=== PATIENT | male | born 2000 | race Two or more races ===

== ENCOUNTER 2023-12-29 10:58 | Emergency (ER) | payer BC, SELFPAY ==
[2023-12-29 11:02] VITALS: BP 140/85; PULSE 57; RESP 16; TEMP 36.8; O2SAT 100; BMI 24.7
--- NOTE | 2023-12-29 11:31 | ED_ITS ---
HPI - Male Genitourinary General Chief complaint: Urogenital-Male Stated complaint: l flank pain- std testing Time Seen by Provider: 12/29/23 11:16 Source: patient Mode of arrival: ambulatory Limitations: no limitations History of Present Illness ED Provider: POLINA TRAVIS PA-C HPI Narrative: 23 year old male with no significant pmhx presents to the ED today for evaluation of LLQ abdominal pain along with urinary urgency and frequency x2 days. Admits pain is localized to LLQ and does not radiate. Reports constipation during the day and episodes of loose stools in the morning. Has not yet been medically evaluated for this. Denies fever, chills, sore throat, cough, sputum production, sob, chest pain, flank pain, hematuria, penile discharge or lesions. Upon entering the room, patient already requesting excusal note from work tomorrow. Related Data Allergies Allergy/AdvReac Type Severity Reaction Status Date / Time No Known Allergies Allergy Verified 12/29/23 11:04 Review of Systems 2 Review of Systems: Constitutional: No fever, chills, fatigue, night sweats, weight changes ENT/Mouth: No ear pain, hearing loss, nasal congestion, sinus pain, rhinorrhea, sore throat Eyes: No eye pain, swelling, redness, vision changes, discharge Cardio: No chest pain, palpitations, PICKARD, orthopnea, peripheral edema Pulm: No SOB, cough, sputum, wheezing, dyspnea, hemoptysis GI: No nausea, vomiting, hematemesis, diarrhea, constipation, hematochezia, melena, +abd pain : No irregular bleeding, dysuria, frequency, urgency, hesitancy, hematuria, flank pain, urinary flow changes, urinary incontinence or retention, +dysuria MSK: No back pain, neck pain, joint pain, myalgias Skin: No lesions, rashes Neuro: No weakness, numbness, paresthesias, LOC, dizziness, headache Psych: No anxiety/panic, depression, SI/HI, AH/VH All other systems reviewed and are negative. [facility] Past Medical History Attestation statement: The following information was validated with the patient. Source: old records reviewed and nursing notes reviewed Social History Social History Advance Directives: No Advance Directives Information Provided: Yes Physical Exam 2 Vital Signs: Vital Signs: Last Vital Signs Temp 98.2 F 12/29/23 11:02 Pulse 57 12/29/23 11:02 Resp 16 12/29/23 11:02 BP 140/85 H 12/29/23 11:02 Pulse Ox 100 12/29/23 11:02 O2 Del Method Room Air 12/29/23 11:02 BMI result Body Mass Index 24.7 Patient hypertensive to 140/85, vitals otherwise WNL. Afebrile. General: Well appearing, in no acute distress. Skin: Warm, dry, intact. No rashes or lesions. Head: Normocephalic, atraumatic. EENT: Hearing is intact b/l. Conjunctiva clear. Sclera is anicteric. PERRLA. EOM intact. Moist mucous membranes.? Neck: Supple without LAD. FROM. Trachea midline.? Cardiac: Chest wall symmetric. RRR. No MRG. No JVD. Lungs: Normal respiratory effort without accessory muscle use. CTA bilaterally. No rales, rhonchi, or wheezes.? Abdomen: Soft, non-tender, non-distended. No rebound tenderness or guarding. Positive BS x4. Back: No midline spinous or paraspinal tenderness. No step off deformity. Ext: Upper and lower extremities atraumatic, without tenderness, deformity, swelling or erythema. Full ROM throughout. Neuro: AOx3. Normal speech. Strength 5/5 intact throughout. Sensation intact to light touch. NV intact distally. Reflexes 2+ bilaterally. Ambulating with steady gait. Psych: Appropriate mood and affect. Responds appropriately to questions. Course Course Course Narrative: 1217 -- CBC without leukocytosis or left shift. No anemia. H&H stable. Chemistry without acute electrolyte abnormality requiring intervention. No ETIENNE. Normal liver function. Lipase WNL. Urine without infection or blood. Denies STI testing. Given benign physical exam and unremarkable labs, I do not feel as though imaging of his abdomen is warranted at this time. Will provide patient with GI referral. I offered to medicate patient with Toradol given abdominal pain however he is declining at this time. Patient has remained stable throughout ED visit today. Discussed worrisome signs and symptoms and when to return to the ED. All questions answered at this time. Patient is agreeable with disposition and stable for discharge. Medications Administered Discontinued Medications Generic Name Dose Route Start Last Admin Trade Name Danyel PRN Reason Stop Dose Admin Ketorolac Tromethamine 30 mg 12/29/23 11:56 12/29/23 12:06 Ketorolac Tromethamine 30 Mg/Ml Vial IM 12/29/23 11:57 Not Given ONCE ONE Medical Decision Making Medical Decision Making [facility] Narrative: 23 year old male with no significant pmhx presents to the ED today for evaluation of LLQ abdominal pain along with urinary urgency and frequency x2 days. Hypertensive to 140/85, vitals otherwise wnl. He is nontoxic appearing and in NAD. Lying comfortably on the exam bed. Skin is warm, dry, intact. There is no CVAT bilaterally. Abdomen is soft, nondistended, nontender to palpation. No rebound tenderness or guarding. Normoactive bowel sounds x4. Bladder not palpable. Differential diagnosis includes anemia, electrolyte abnormality, UTI, ETIENNE, gastroenteritis, renal colic, nephrolithiasis. Patient declines STI testing at this time. Lower suspicion for diverticulosis/ diverticulitis, atypical appendicits. Presentation not consistent with SBO, ischemic bowel. Plan for blood work, UA, and re-evaluation. Differential Diagnosis Differential Diagnoses: The differential diagnosis associated with the presentation includes As above Admission/Observation Not indicated Lab Data [facility] Lab Attestation statement: I reviewed the patient's lab results. As above 12/29/23 11:29 12/29/23 11:29 Labs: Lab Results 12/29/23 12/29/23 Range/Units 11:29 11:35 WBC 7.8 (4.8-10.8) X10*3/uL RBC 4.84 (4.60-5.80) X10*6/uL Hgb 14.3 (14.0-18.0) g/dl Hct 42.3 (42.0-52.0) % MCV 87.4 (80.0-98.0) fL MCH 29.5 (27.0-33.0) pg MCHC 33.8 (31.0-36.0) g/dl RDW 12.6 (11.0-16.0) % Plt Count 265 (160-400) X10*3/uL MPV 8.4 L (9.4-12.4) fL Immature Gran % (Auto) 0.3 (0.0-0.4) % Neut % (Auto) 53.4 (45-73) % Lymph % (Auto) 34.6 (20-40) % [place] % (Auto) 6.0 (2-11) % Eos % (Auto) 5.1 H (0-4) % Baso % (Auto) 0.6 (0-2) % Lymph # (Auto) 2.7 (1.2-4.9) X10*3/uL [place] # (Auto) 0.5 (0.1-1.2) X10*3/uL Eos # (Auto) 0.4 (0.0-0.4) X10*3/uL Baso # (Auto) 0.1 (0.0-0.2) X10*3/uL Abs Immat Gran (auto) 0.02 (0.00-0.03) X10*3/uL Absolute Neuts (auto) 4.2 (2.0-8.3) x10*3/uL Absolute Nucleated RBC 0.000 (0.0-0.012) X10*3/uL Nucleated RBC % (auto) 0.0 (0.0-0.2) /100WBC Sodium 141 (135-145) mmol/L Potassium 4.0 (3.3-5.1) mmol/L Chloride 108 (96-108) mmol/L Carbon Dioxide 26 (22-29) mmol/L Anion Gap 11 L (12-20) BUN 12 (9-16) mg/dL Creatinine 0.71 (0.5-1.4) mg/dL Estim Creat Clear Calc 148.6 Estimated GFR > 60 Random Glucose 94 (60-115) mg/dL Calcium 9.4 (8.4-10.2) mg/dL Total Bilirubin 0.8 (0.0-1.0) mg/dL Direct Bilirubin 0.2 (0.0-0.5) mg/dL AST 19 (5-37) U/L ALT 19 (0-40) U/L Alkaline Phosphatase 54 (39-117) U/L Total Protein 6.5 (6.5-8.0) g/dL Albumin 4.3 (3.5-5.0) g/dL Lipase 28 (8-78) U/L Urine Color Yellow Urine Appearance Turbid Urine pH >= 9.0 (5.0-9.0) Ur Specific [place] 1.025 (1.005-1.025) Urine Protein Trace (Neg-Trace) mg/dL Urine Glucose (UA) Negative (Negative) mg/dL Urine Ketones Negative (Negative) mg/dL Urine Blood Negative (Negative) Urine Nitrite Negative (Negative) Ur Leukocyte Esterase Negative (Negative) Critical Care Time Critical Care Time Critical Care Time: No Discharge Plan Discharge Clinical Impression: Abdominal pain Patient Disposition: Home, Self-Care Instructions: Abdominal Pain (ED) Additional Instructions: Your blood work today is reassuring. Your urine is negative for infection or blood. Etiology of your abdominal pain is unclear. I recommend you take 600mg ibuprofen every 6 hours or Tylenol 650mg every 6 hours as needed for pain. If needed, you can alternate these medications so that you take one medication every 3 hours. For example, at noon take ibuprofen, then at 3pm take Tylenol, then at 6pm take ibuprofen. You have been provided with a referral to a gastrointestinal doctor. You may call them to establish care. They will not call you. Return with new or worsening symptoms. In the case of an emergency call 911. Referrals: [facility] [Provider Group] [facility] [Provider Group] [facility] [Provider Group] Stand Alone Forms: Work/School Release Discharge Date/Time: 12/29/23 12:23 Print Language: Telugu
[2023-12-29 11:35] LABS: Basophils Absolute Auto 0.1 X10*3/uL (0.0-0.2); Basophils Percent Auto 0.6 % (0-2); Eosinophils Absolute Auto 0.4 X10*3/uL (0.0-0.4); Eosinophils Percent Auto 5.1 % (0-4); Hematocrit 42.3 % (42.0-52.0); Hemoglobin 14.3 g/dl (14.0-18.0); Imm Gran Abs Auto 0.02 X10*3/uL (0.00-0.03); Imm Gran Pct Auto 0.3 % (0.0-0.4); Lymphocytes Absolute Auto 2.7 X10*3/uL (1.2-4.9); Lymphocytes Percent Auto 34.6 % (20-40); MANUAL DIFF FLAG NO; Mean Corpuscular HGB Conc 33.8 g/dl (31.0-36.0); Mean Corpuscular Hemoglobin 29.5 pg (27.0-33.0); Mean Corpuscular Volume 87.4 fL (80.0-98.0); Mean Platelet Volume 8.4 fL (9.4-12.4); Monocytes Absolute Auto 0.5 X10*3/uL (0.1-1.2); Neutrophils Absolute Auto 4.2 x10*3/uL (2.0-8.3); Neutrophils Percent Auto 53.4 % (45-73); Platelet Count 265 X10*3/uL (160-400); Red Blood Count 4.84 X10*6/uL (4.60-5.80); Red Cell Distribution Width 12.6 % (11.0-16.0); White Blood Count 7.8 X10*3/uL (4.8-10.8)
[2023-12-29 11:43] LABS: Appearance Urine Turbid; Color Urine Yellow; Glucose Urine UA Negative (Negative); Leukocyte Esterase Urine Negative (Negative); Nitrite Urine Negative (Negative); PH >= 9.0 (5.0-9.0); Specific Gravity - Urine 1.025 (1.005-1.025); Urine Blood Negative (Negative); Urine Ketones Negative (Negative); Urine Protein Trace mg/dL (Neg-Trace)
[2023-12-29 11:52] LABS: Alanine Aminotransferase 19 U/L (0-40); Albumin Level 4.3 g/dL (3.5-5.0); Alkaline Phosphatase 54 U/L (39-117); Anion Gap 11 (12-20); Aspartate Amino Transferase 19 U/L (5-37); Bilirubin Direct 0.2 mg/dL (0.0-0.5); Bilirubin Total 0.8 mg/dL (0.0-1.0); Blood Urea Nitrogen 12 mg/dL (9-16); Calcium 9.4 mg/dL (8.4-10.2); Carbon Dioxide 26 mmol/L (22-29); Chloride 108 mmol/L (96-108); Creatinine Clr Calc Pharmacy 148.6; Estimated Glomerular Filt Rate > 60; Glucose Random 94 mg/dL (60-115); Lipase 28 U/L (8-78); Sodium 141 mmol/L (135-145); Total Protein 6.5 g/dL (6.5-8.0)
--- NOTE | 2023-12-29 12:06 | PC.NURSE ---
pt refused pain med
[2023-12-29 12:20] VITALS: BP 118/69; PULSE 65; RESP 16; TEMP 36.4; O2SAT 99
== END 2023-12-29 12:23 | disposition home or self-care (01) ==
PROVIDERS: Physician Assistant; Emergency Provider Emergency Medicine
DX: R10.9 Unspecified abdominal pain (principal); R10.32 Left lower quadrant pain; R39.15 Urgency of urination; R35.0 Frequency of micturition; Z20.2 Contact with and (suspected) exposure to infections with a predominantly sexual mode of transmission; Z79.899 Other long term (current) drug therapy
CPT/HCPCS: 36415; 80048; 80076; 81003; 83690; 85025; 96372; 99282; 99284

== ENCOUNTER 2024-02-07 17:36 | Emergency (ER) | payer BC, SELFPAY ==
--- NOTE | 2024-02-07 18:14 | ED.ABDPAIN ---
HPI - Abdominal Pain General Chief Complaint: Abdominal Pain Stated Complaint: back pain, no injury Related Data Previous Rx's ?Medication ?Instructions ?Recorded oxycodone 5 mg tablet 5 mg PO Q6H PRN pain #7 tabs 02/09/24 tamsulosin 0.4 mg capsule 0.4 mg PO BEDTIME #14 caps 02/09/24 Allergies Allergy/AdvReac Type Severity Reaction Status Date / Time No Known Allergies Allergy Verified 02/09/24 08:43 [facility] Social History Social History Advance Directives: No Advance Directives Information Provided: No Physical Exam ED Vital Signs: BMI result Body Mass Index 25.5 Course Course Course Narrative: This is an RME performed by Catalina Rowe CNP: Additional HPI, ROS, PE not included below will be deferred to primary provider. Patient is a 23 year male who presents emergency department for evaluation of left lower quadrant abdominal pain. Reports that he was initially evaluated about 1 month ago in this emergency department for similar. States he was advised to follow up outpatient with . Never sought evaluation. Reports pain is becoming more continuous at this time, localized to the abdomen. Denies associated nausea, vomiting, symptoms, diarrhea, constipation. Plan: Serum labs, urinalysis Medical Decision Making Lab Data 02/07/24 18:58 02/07/24 18:58 Labs: Lab Results 02/07/24 02/07/24 Range/Units 18:58 19:15 WBC 9.4 (4.8-10.8) X10*3/uL RBC 4.67 (4.60-5.80) X10*6/uL Hgb 13.8 L (14.0-18.0) g/dl Hct 41.2 L (42.0-52.0) % MCV 88.2 (80.0-98.0) fL MCH 29.6 (27.0-33.0) pg MCHC 33.5 (31.0-36.0) g/dl RDW 12.7 (11.0-16.0) % Plt Count 240 (160-400) X10*3/uL MPV 8.7 L (9.4-12.4) fL Immature Gran % (Auto) 0.3 (0.0-0.4) % Neut % (Auto) 51.3 (45-73) % Lymph % (Auto) 35.8 (20-40) % [place] % (Auto) 5.2 (2-11) % Eos % (Auto) 6.8 H (0-4) % Baso % (Auto) 0.6 (0-2) % Lymph # (Auto) 3.4 (1.2-4.9) X10*3/uL [place] # (Auto) 0.5 (0.1-1.2) X10*3/uL Eos # (Auto) 0.6 H (0.0-0.4) X10*3/uL Baso # (Auto) 0.1 (0.0-0.2) X10*3/uL Abs Immat Gran (auto) 0.03 (0.00-0.03) X10*3/uL Absolute Neuts (auto) 4.8 (2.0-8.3) x10*3/uL Absolute Nucleated RBC 0.000 (0.0-0.012) X10*3/uL Nucleated RBC % (auto) 0.0 (0.0-0.2) /100WBC Sodium 141 (135-145) mmol/L Potassium 3.8 (3.3-5.1) mmol/L Chloride 108 (96-108) mmol/L Carbon Dioxide 26 (22-29) mmol/L Anion Gap 11 L (12-20) BUN 10 (9-16) mg/dL Creatinine 0.73 (0.5-1.4) mg/dL Estim Creat Clear Calc 144.6 Estimated GFR > 60 Random Glucose 97 (60-115) mg/dL Calcium 9.6 (8.4-10.2) mg/dL Total Bilirubin 0.3 (0.0-1.0) mg/dL AST 20 (5-37) U/L ALT 20 (0-40) U/L Alkaline Phosphatase 54 (39-117) U/L Total Protein 6.0 L (6.5-8.0) g/dL Albumin 4.1 (3.5-5.0) g/dL Lipase 32 (8-78) U/L Urine Color Yellow Urine Appearance Clear Urine pH 6.5 (5.0-9.0) Ur Specific [place] 1.015 (1.005-1.025) Urine Protein Negative (Neg-Trace) mg/dL Urine Glucose (UA) Negative (Negative) mg/dL Urine Ketones Negative (Negative) mg/dL Urine Blood Negative (Negative) Urine Nitrite Negative (Negative) Ur Leukocyte Esterase Negative (Negative) Discharge Plan Discharge Clinical Impression: Abdominal pain Patient Disposition: Left W/O Completing Treatment Prescriptions: No Action tamsulosin 0.4 mg capsule 0.4 mg PO BEDTIME Qty: 14 0RF oxycodone 5 mg tablet 5 mg PO Q6H PRN (Reason: pain) Qty: 7 0RF Rx Instructions: Partial Fill upon patient request. Discharge Date/Time: 02/07/24 21:18
[2024-02-07 18:15] VITALS: BP 122/71; PULSE 61; RESP 18; TEMP 36.6; O2SAT 99; BMI 25.5
[2024-02-07 19:03] LABS: MANUAL DIFF FLAG NO
[2024-02-07 19:19] LABS: Basophils Absolute Auto 0.1 X10*3/uL (0.0-0.2); Basophils Percent Auto 0.6 % (0-2); Eosinophils Absolute Auto 0.6 X10*3/uL (0.0-0.4); Eosinophils Percent Auto 6.8 % (0-4); Hematocrit 41.2 % (42.0-52.0); Hemoglobin 13.8 g/dl (14.0-18.0); Imm Gran Abs Auto 0.03 X10*3/uL (0.00-0.03); Imm Gran Pct Auto 0.3 % (0.0-0.4); Lymphocytes Absolute Auto 3.4 X10*3/uL (1.2-4.9); Lymphocytes Percent Auto 35.8 % (20-40); Mean Corpuscular HGB Conc 33.5 g/dl (31.0-36.0); Mean Corpuscular Hemoglobin 29.6 pg (27.0-33.0); Mean Corpuscular Volume 88.2 fL (80.0-98.0); Mean Platelet Volume 8.7 fL (9.4-12.4); Monocytes Absolute Auto 0.5 X10*3/uL (0.1-1.2); Monocytes Percent Auto 5.2 % (2-11); Neutrophils Absolute Auto 4.8 x10*3/uL (2.0-8.3); Neutrophils Percent Auto 51.3 % (45-73); Platelet Count 240 X10*3/uL (160-400); Red Blood Count 4.67 X10*6/uL (4.60-5.80); Red Cell Distribution Width 12.7 % (11.0-16.0); White Blood Count 9.4 X10*3/uL (4.8-10.8)
[2024-02-07 19:20] LABS: Alanine Aminotransferase 20 U/L (0-40); Albumin Level 4.1 g/dL (3.5-5.0); Alkaline Phosphatase 54 U/L (39-117); Anion Gap 11 (12-20); Aspartate Amino Transferase 20 U/L (5-37); Bilirubin Total 0.3 mg/dL (0.0-1.0); Blood Urea Nitrogen 10 mg/dL (9-16); Calcium 9.6 mg/dL (8.4-10.2); Carbon Dioxide 26 mmol/L (22-29); Chloride 108 mmol/L (96-108); Creatinine Clr Calc Pharmacy 144.6; Estimated Glomerular Filt Rate > 60; Glucose Random 97 mg/dL (60-115); Lipase 32 U/L (8-78); Potassium 3.8 mmol/L (3.3-5.1); Sodium 141 mmol/L (135-145)
[2024-02-07 19:23] LABS: Appearance Urine Clear; Color Urine Yellow; Glucose Urine UA Negative (Negative); Leukocyte Esterase Urine Negative (Negative); Nitrite Urine Negative (Negative); PH 6.5 (5.0-9.0); Specific Gravity - Urine 1.015 (1.005-1.025); Urine Blood Negative (Negative); Urine Ketones Negative (Negative); Urine Protein Negative (Neg-Trace)
== END 2024-02-07 21:18 | disposition left against medical advice (07) ==
PROVIDERS: Nurse Practitioner Family; Emergency Provider Emergency Medicine
DX: R10.32 Left lower quadrant pain (principal)
CPT/HCPCS: 36415; 80053; 81003; 83690; 85025; 99282; 99283

== ENCOUNTER 2024-02-08 10:02 | Emergency (ER) | payer BC, SELFPAY ==
--- NOTE | ~2024-02-08 | CT_ITS ---
EXAMINATION: CT ABDOMEN PELVIS WITHOUT IV CONTRAST CLINICAL INFORMATION: left lower quadrant abdominal pain COMPARISON: No prior CT available for comparison. TECHNIQUE: Multidetector volumetric imaging was performed from the superior aspect of the liver through the pubic symphysis , noncontrast this study. Sagittal and coronal reformatted images were obtained on the technologist's workstation. This CT examination was performed using dose optimization techniques as appropriate, variously including the following: *Automated exposure control *Adjustment of mA and/or kV according to patient size (this includes techniques or standardized protocols for targeted exams where dose is matched to indication/reason for exam; i.e. extremities or head) *Use of iterative reconstruction technique DLP: 384 mGy-cm FINDINGS: LOWER THORAX: Included lung bases are clear. HEPATOBILIARY: No focal hepatic lesions. No biliary ductal dilatation. GALLBLADDER: Gallbladder unremarkable. SPLEEN: Spleen is normal in size. PANCREAS: No focal mass or ductal dilatation. STOMACH AND GASTROINTESTINAL TRACT: Stomach is grossly unremarkable. There is no bowel distention or thickening. No CT evidence of appendicitis. ADRENALS: No adrenal nodules. KIDNEYS/URETERS: Mild left renal hydronephrosis, 2 mm partially obstructing stone in the proximal left ureter seen best on image 40 series 5. Perinephric fat are clear. URINARY BLADDER: Partially decompressed. PELVIC VISCERA: Unremarkable PERITONEUM: No free air or fluid. LYMPH NODES: No lymphadenopathy. VASCULAR:Abdominal aorta normal in size, no aneurysm found. BONES, ABDOMINAL WALL AND SOFT TISSUES: Age-appropriate changes of the spine and skeletal system, no destructive osteolytic or osteosclerotic bone lesion found CT/CT abdomen pelvis wo IV con IMPRESSION: Mild left renal hydronephrosis, 2 mm partially obstructing stone in the proximal left ureter. Electronically signed by: Nina Fair MD 02/08/2024 01:43 PM EDT
[2024-02-08 10:07] VITALS: BP 117/70; PULSE 69; RESP 14; TEMP 37.2; O2SAT 99; BMI 25.2
--- NOTE | 2024-02-08 12:30 | PC.NURSE ---
Pt. awaiting results of CT scan at this time. Call light within reach.
--- NOTE | 2024-02-08 12:59 | ED_ITS ---
HPI - Abdominal Pain General Chief Complaint: Abdominal Pain Stated Complaint: abd pain lower left side Time Seen by Provider: 02/08/24 12:00 Source: patient Mode of arrival: ambulatory Limitations: no limitations History of Present Illness ED Provider: DR. Chen HPI narrative: 23-year-old male came in for evaluation of left lower abdominal pain that is been constant for over a month, patient had a prior evaluation in the ED for similar pain with a negative workup, patient is sexually active with 1 partner declined risk for STDs, no urethral discharge, no dysuria, however patient re port polyuria but he also drinks tea and water. No history of intra-abdominal pathology, normal bowel movement last bowel movement was this morning with no bleeding. No fever, no chills. Related Data Allergies Allergy/AdvReac Type Severity Reaction Status Date / Time No Known Allergies Allergy Verified 02/08/24 10:10 Review of Systems Review of Systems all other systems are reviewed and are negative Constitutional: Reports as per HPI and Reports no additional constitutional complaints Eyes: Reports as per HPI and Reports no additional eye complaints Reports system reviewed and no additional complaints, except as documented Cardiovascular: Reports as per HPI and Reports no additional cardiovascular complaints Respiratory: Reports as per HPI and Reports no additional respiratory complaints Gastrointestinal: Reports as per HPI and Reports no additional gastrointestinal complaints Genitourinary: Reports no additional female genitourinary complaints Musculoskeletal: Reports no additional musculoskeletal complaints Skin/Breast: Reports system reviewed and no additional complaints, except as docu Psychiatric: Reports no additional psychiatric complaints Endocrine: Reports no additional endocrine complaints Hematologic/Lymphatic: Reports no additional hematologic/lymphatic complaints Allergic/Immunologic: Reports no additional allergic/immunologic complaints Reports system reviewed and no additional complaints, except as documented and Reports Abnormal speech present [facility] Social History Social History Advance Directives: No Advance Directives Information Provided: Yes Physical Exam ED Vital Signs: Vital Signs - 24 hr 02/08/24 10:07 Temperature 99 F Pulse Rate 69 Respiratory Rate 14 Blood Pressure 117/70 Pulse Oximetry 99 Oxygen Delivery Method Room Air BMI result Body Mass Index 25.2 Vital signs have been reviewed and appear to be correct. Blood pressure elevated. Heart rate normal. Respiratory rate normal. Temperature normal. Oxygen saturation normal. Appearance: Alert. Oriented X3. No acute distress. Head: Normal external exam. Normocephalic. Atraumatic. No Whalen signs noted. No raccoon eyes noted Eyes: PERRLA. EOMI. Conjunctiva and sclera normal. Eyelids normal. ENT: TM's Normal. Pharynx normal. Uvula midline. Moist mucous membranes. No trismus noted. No drooling noted. No muffled voice noted. Neck: Normal inspection. Neck supple. FROM. No adenopathy. Thyroid Normal. No meningeal signs. No neck mass noted. CVS: Normal heart rate and rhythm. Heart sound normal. No murmurs noted. Pulses normal throughout. Respiratory: No respiratory distress. Painless inspiration. Breath sounds normal. No wheezes/rales/rhonchi noted. Chest nontender. No accessory muscle usage noted or decreased air movement noted. Abdomen: Soft and nontender. Bowel sounds normal in all 4 quadrants. No distention noted. No organomegaly noted. No visible injury noted. Back: No CVA tenderness. Full range of motion noted. Skin: Skin warm and dry. Normal skin color. Normal skin turgor. No rashes/lesions/lacerations noted. Extremities: No lower extremity edema. Extremities exhibit normal range of motion. Extremities nontender. Neuro: Oriented X 3. Cranial nerve exam: II-XII are grossly intact No motor deficit. No sensory deficit. Reflexes normal. Course Reevaluation(s) Reevaluation #1: chronic left lower abdominal pain for over a month, unremarkable labs ( was done yesterday patient left without been seen ), CT of the abdomen And pelvis showing 2 mm obstructive stone to the left ureter with hydronephrosis, patient left the ED before CT result and re-evaluation. Time: 16:40 Medical Decision Making Differential Diagnosis Differential Diagnoses: The differential diagnosis associated with the presentation includes ( Kidney stone, diverticulitis, colitis, appendicitis, pancreatitis, electrolyte derangement, severe anemia, UTI, STDs.) Admission/Observation Consideration of admission/observation: Escalation of care including admission/observation considered Lab Data MDM Lab Attestation statement: I reviewed the patient's lab results. Independent Interpretation I performed an independent interpretation of an: CT Scan ( Abdomen pelvis: Mild left renal hydronephrosis, 2 mm partially obstructing stone in the proximal left ureter.) Radiology Impression Discussion of test interpretation with radiology: I have reviewed the radiologist's reading. Discharge Plan Discharge Clinical Impression: Abdominal pain, Calculus of left ureter Patient Disposition: Left W/O Completing Treatment Additional Instructions: Follow-up with your primary doctor. Discharge Date/Time: 02/08/24 13:31
--- NOTE | 2024-02-08 13:15 | PC.NURSE ---
This RN informed by pt. registration that pt. just walked out and states I don't have time for this right now. I'll be back later . notified and aware.
== END 2024-02-08 13:31 | disposition left against medical advice (07) ==
PROVIDERS: Emergency Provider Emergency Medicine
DX: N13.2 Hydronephrosis with renal and ureteral calculous obstruction (principal); R10.32 Left lower quadrant pain
CPT/HCPCS: 74176; 99281; 99284

== ENCOUNTER 2024-02-09 08:37 | Emergency (ER) | payer BC, SELFPAY ==
[2024-02-09 08:40] VITALS: BP 128/75; PULSE 63; RESP 18; TEMP 36.8; O2SAT 99; BMI 25.0
--- NOTE | 2024-02-09 09:22 | ED.ABDPAIN ---
HPI - Abdominal Pain General Chief Complaint: Abdominal Pain Stated Complaint: l flank pain Time Seen by Provider: 02/09/24 09:05 Source: patient Mode of arrival: ambulatory Limitations: no limitations History of Present Illness HPI narrative: Patient is a 23-year-old male we presenting to emergency department for evaluation of left lower quadrant abdominal pain. He has presented to the emergency department the past 2 days as well but ultimately has left from the waiting room without being seen. Pain is intermittent with varying intensity, has associated difficulty urinating but denies dysuria. He reports that he has missed work due to his degree of pain. He had a CT scan done yesterday but left before receiving the results. He denies associated fevers, nausea, vomiting, diarrhea, constipation, back pain, hematuria. Denies history of similar pain in the past. He states that his is due to give in the next 2 days, and wanted to be evaluated today to know what is going on. At this time he states his pain is well controlled. Related Data Previous Rx's ?Medication ?Instructions ?Recorded oxycodone 5 mg tablet 5 mg PO Q6H PRN pain #7 tabs 02/09/24 tamsulosin 0.4 mg capsule 0.4 mg PO BEDTIME #14 caps 02/09/24 Allergies Allergy/AdvReac Type Severity Reaction Status Date / Time No Known Allergies Allergy Verified 02/09/24 08:43 Review of Systems Review of Systems Yes all other systems are reviewed and are negative [facility] Past Medical History Attestation statement: The following information was validated with the patient. Source: old records reviewed Social History Social History Advance Directives: No Advance Directives Information Provided: No Physical Exam ED Vital Signs: Vital Signs - 24 hr 02/09/24 08:40 Temperature 98.3 F Pulse Rate 63 Respiratory Rate 18 Blood Pressure 128/75 Pulse Oximetry 99 Oxygen Delivery Method Room Air BMI result Body Mass Index 25.0 Appearance: Alert.?Oriented to person, place and time. No acute distress.?Normal affect. Neck: Normal inspection.? Neck supple.?? CVS: Heart sounds normal. Normal heart rate and rhythm.? Pulses normal.?? Respiratory: No respiratory distress.? Lung sounds clear to auscultation bilaterally?? Abdomen: Soft with mild left lower quadrant tenderness upon palpation. Mild left CVAT. Normoactive bowel sounds. No pulsatile mass.?? Skin: Skin warm and dry.? Normal skin color.? Extremities: No lower extremity edema.? Neuro: Moves all extremities spontaneously. Sensation intact bilaterally. Ambulates with normal steady gait. Medical Decision Making Medical Decision Making [facility] Narrative: Patient is a 23-year-old male we presenting to emergency department for evaluation of left lower quadrant abdominal pain. On evaluation found to have a 2 mm partially obstructing proximal ureteral calculi on CT imaging yesterday. His examination is overall very reassuring today, has some mild tenderness upon palpation. Review of serum labs from 2 days prior without electrolyte derangement, evidence of ETIENNE, leukocytosis. Urinalysis was without evidence of infection. At this time will discharge with treatment for ureteral calculi, strict return precautions, outpatient follow-up with Urology. He has significant life events coming up, though as pain is well-controlled at this time it does have a varying intensity. I have sent a short prescription for oxycodone to his pharmacy to take as he sees necessary for severe uncontrolled pain. 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 All questions answered. Differential Diagnosis Differential Diagnoses: The differential diagnosis associated with the presentation includes (See narrative above) Lab Data MDM Lab Attestation statement: I reviewed the patient's lab results. (See narrative above) Independent Interpretation I performed an independent interpretation of an: CT Scan (Left ureteral calculi) Radiology Impression Discussion of test interpretation with radiology: I have reviewed the radiologist's reading. (Obtained 02/08/2024) Radiologist Impression: CT/CT abdomen pelvis wo IV con IMPRESSION: Mild left renal hydronephrosis, 2 mm partially obstructing stone in the proximal left ureter. 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 Take tamsulosin daily at bedtime, this will help to dilate the ureter to allow for easier passage of the stone. For pain that is unrelieved by ibuprofen or Tylenol I have sent a prescription for oxycodone to your pharmacy. This is a narcotic medication. It may make you drowsy and it can be addicting. You should not drive, drink alcohol, or work while taking this medication. 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 I have sent it for you as you have significant life events upcoming, it may be difficult for you to return for re-evaluation if your pain becomes uncontrolled. Contact Urology to arrange for outpatient follow-up Prescriptions: New tamsulosin 0.4 mg capsule 0.4 mg PO BEDTIME Qty: 14 0RF oxycodone 5 mg tablet 5 mg PO Q6H PRN (Reason: pain) Qty: 7 0RF Rx Instructions: Partial Fill upon patient request. Referrals: Brannon Yarbrough MD [Physician] - Print Language: Citizen Of [place]
--- OUTSIDE RECORDS SUMMARY | 2024-02-09 09:23 | XMS_ITS | Patient Health Record ---
Author Organization [facility] Address [address] [facility] [facility] [id number] [place] [address] Care Team Providers Care Manager E Commerce Name Role Phone [facility] Primary Care Provid er Unavailable Clarke Villatoro Unavailable [phone] REASON FOR REFERRAL No Information Encounters Encounter Location Date Provider Diagnosis [address] [id number], [place] [address] 12/09/2023 Clarke Villatoro [facility] [address] [place] [id number] 12/10/2023 Clarke Villatoro PLAN OF TREATMENT No Information Insurance Providers Payer Name Payer Address Payer Phone Subscriber Number Group Number Insured Name Patient Relationship to Insured Coverage Start Date Coverage End Date MEDICAID DENTAL [place]KY A [address] [place] [address] [id number] Blas Wisdom Self - patient is the insured
--- OUTSIDE RECORDS SUMMARY | 2024-02-09 09:23 | XMS_ITS ---
Author Organization [employer] Address [address] [place] [address] [id number] [place] [address] Care Team Providers Care Box Blank Machine Feeder Name Role Phone [facility] Primary Care Provid er Unavailable Clarke Villatoro Unavailable [phone] REASON FOR VISIT est care Encounters Encounter Location Date Provider Diagnosis [facility] Facility [address] [place] [id number] 12/10/2023 Clarke Villatoro PLAN OF TREATMENT No Information
--- OUTSIDE RECORDS SUMMARY | 2024-02-09 09:23 | XMS_ITS ---
Author Organization [facility] [facility] Address [address] [place] [address] [id number], [place] [address] Care Team Providers Care Dry Mill Worker Name Role Phone [facility] Primary Care Provid er Unavailable Clarke Villatoro Unavailable [phone] REASON FOR VISIT appt confirmation Encounters Encounter Location Date Provider Diagnosis [facility] [address] [id number], [place] [address] 12/09/2023 Clarke Villatoro PLAN OF TREATMENT No Information
[2024-02-09 09:32] VITALS: BP 128/75; PULSE 63; RESP 18; TEMP 36.8; O2SAT 99
== END 2024-02-09 09:40 | disposition home or self-care (01) ==
PROVIDERS: Emergency Provider Emergency Medicine
DX: N20.1 Calculus of ureter (principal); R10.32 Left lower quadrant pain; R33.9 Retention of urine, unspecified
CPT/HCPCS: 99282

== ENCOUNTER 2024-05-19 10:51 | Outpatient (AMB) | payer BC, SELFPAY ==
--- NOTE | 2024-05-19 10:58 | A.OFFVIS_ITS ---
Intake Visit Reasons: ureteral stone Intake Note: New Patient is present for [facility] Follow up Ureteral Stone Urology Medication:TAMSULOSIN Antibiotic Allergy:NONE Blood Thinner:NONE Research And Development Specialist Required: No Accompanied by: Self / Same As Patient Allergies No Known Allergies Allergy (Verified 05/19/24 11:01) [facility] Medical History (Updated 05/19/24 @ 11:31 by Brannon Yarbrough MD) Ureteral stone Family History (Updated 05/19/24 @ 11:07 by MALU Sarmiento) Mother History of kidney stones Father Kidney disease Results AMB Urinalysis, Automated UA Leukoctes 0 Jose Cruz/uL Last Edit by MALU Sarmiento on 05/19/24 11:12 UA Nitrite Negative Last Edit by MALU Sarmiento on 05/19/24 11:12 UA Urobilinogen 0.2 mg/dL Last Edit by MALU Sarmiento on 05/19/24 11:1 2 UA Protein 0 mg/dL Last Edit by MALU Sarmiento on 05/19/24 11:12 UA pH 7.0 Last Edit by MALU Sarmiento on 05/19/24 11:12 UA Blood 0 Dennis/uL Last Edit by MALU Sarmiento on 05/19/24 11:12 UA Specific [place] 1.015 Last Edit by MALU Sarmiento on 05/19/24 11: 12 UA Ketone Negative Last Edit by MALU Sarmiento on 05/19/24 11:12 UA Bilirubin 0 mg/dL Last Edit by MALU Sarmiento on 05/19/24 11:12 UA Glucose 0 mg/dL Last Edit by MALU Sarmiento on 05/19/24 11:12 Results Reviewed Results Reviewed: Laboratory Last Values Urine pH (Auto) 7.0 05/19/24 11:08 Specific [place] (Auto) 1.015 05/19/24 11:08 Urine Protein (Auto) 0 mg/dL 05/19/24 11:08 Glucose (UA)(Auto) 0 mg/dL 05/19/24 11:08 Urine Ketones (Auto) Negative 05/19/24 11:08 Urine Blood (Auto) 0 Dennis/uL 05/19/24 11:08 Urine Nitrite (Auto) Negative 05/19/24 11:08 Urine Bilirubin (Auto) 0 mg/dL 05/19/24 11:08 Urine Urobilinogen (Auto) 0.2 mg/dL 05/19/24 11:08 Leukocyte Esterase (Auto) 0 Jose Cruz/uL 05/19/24 11:08 Assessment & Plan Assessment & Plan (1) Ureteral stone: Code(s): N20.1 - Calculus of ureter Category: Medical Orders: Orders AMB Urinalysis Automated Today Z13.9 - Encounter for screening, unspecified US renal BI 4 Months N20.1 - Calculus of ureter Coding Diagnoses Ureteral stone N20.1
--- OUTSIDE RECORDS SUMMARY | 2024-05-19 12:27 | XMS_ITS ---
[facility] Unknown History of Medication Use Medication Directions Dispensed Refills Start Date End Date Stat No medication inform ation recorded 08/07/2023 active Problems Problem Status Onset Date Problem Type Date of Resoluti on Source Other asthma (J45.998) active [facility]Act [facility] Dorsalgia, unspecified active 2023-08-[address] [facility] Influenza due to other identified influenza virus with other manifestations active 2023-08-[address] [facility]
== END 2024-05-19 11:34 | disposition home or self-care (01) ==
LOC: HO.HUSH 10:51
PROVIDERS: Visit Provider Urology
DX: Z13.9 Encounter for screening, unspecified (principal)

== ENCOUNTER → 2024-05-19 10:51 | Outpatient (BNVA) | payer BC, SELFPAY | PROVIDERS: Visit Provider Urology | DX: N20.1 Calculus of ureter (principal) | CPT/HCPCS: 81003 ==

== ENCOUNTER 2024-11-19 10:29 | Outpatient (REF) | payer BC, SELFPAY ==
--- OUTSIDE RECORDS SUMMARY | 2023-12-09 06:46 | XMS_ITS ---
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
--- NOTE | ~2024-11-19 | US_ITS ---
EXAMINATION: US KIDNEY BILATERAL HISTORY: N20.1 - Calculus of ureter TECHNIQUE: Real-time grayscale ultrasound imaging of the kidneys was performed and images were reviewed. COMPARISON: Correlation is made with an unenhanced CT of the abdomen dated 02/08/2024. FINDINGS: Right kidney: The right kidney measures 11.4 x 4.4 x 5.2 cm. Renal parenchymal echotexture and thickness are normal. There are no masses. There is no hydronephrosis or renal calculi. Left Kidney: The left kidney measures 10.7 x 5.5 x 4.9 cm. Renal parenchymal echotexture and thickness are normal. There are no masses. There is no hydronephrosis or renal calculi. US/US renal BI IMPRESSION: Unremarkable renal ultrasound. Electronically signed by: John Noland MD 11/19/2024 11:07 AM EDT
--- OUTSIDE RECORDS SUMMARY | 2024-11-19 11:21 | XMS_ITS ---
Author Name [facility] Organization Unknown Problems Problem Status Onset Date Problem Type Date of Resoluti on Source Other asthma (J45.998) active ProblemAct [facility] Influenza due to other identified influenza virus with other manifestations active 2023-08-04 ProblemAct [facility] Dorsalgia, unspecified active 2023-08-04 ProblemAct [facility] Encounters Encounter Type Encounter Reason Primary Diagnosis Location Date Ambulatory [facility] 08/04/2023 Care Team Organization Name Specialty Phone Email Start Date End Da te [facility] 024 [facility] 024
--- OUTSIDE RECORDS SUMMARY | 2024-11-19 11:21 | XMS_ITS | Patient Health Record ---
Author Organization [facility], [facility] Address [address] [facility] [id number], [place] [address] Care Team Providers Care Wet Roaster Name Role Phone [facility] Primary Care Provid er Unavailable Clarke Villatoro Unavailable [phone] REASON FOR REFERRAL No Information Encounters Encounter Location Date Provider Diagnosis [facility], [address] [id number], [place] [address] 12/09/2023 Clarke Villatoro [facility] Facility [address] [place] [phone] 12/10/2023 Clarke Villatoro PLAN OF TREATMENT No Information Insurance Providers Payer Name Payer Address Payer Phone Subscriber Number Group Number Insured Name Patient Relationship to Insured Coverage Start Date Coverage End Date MEDICAID DENTAL HUSKY A [address] [place] [address] [id number] Blas Wisdom Self - patient is the insured
== END 2024-11-19 10:30 | disposition home or self-care (01) ==
LOC: HO.US 10:29
PROVIDERS: Visit Provider Urology
DX: N20.1 Calculus of ureter (principal)
CPT/HCPCS: 76775

== ENCOUNTER → 2024-11-19 10:31 | Outpatient (BNV) | payer BC, SELFPAY | PROVIDERS: Visit Provider Radiology Diagnostic Radiology | DX: N20.1 Calculus of ureter (principal) | CPT/HCPCS: 76775 ==